=== PATIENT | female | born 1990 ===

== ENCOUNTER 2016-11-14 09:26 | Emergency (ER) | payer OTHER ==
[2016-11-14 10:01] VITALS: BP 132/68
--- NOTE | 2016-12-08 07:25 | UC ---
Sebastián Rhodes Adam, scribed for Ara Shabazz DO on 11/14/16 at 1107 . Skin Complaint HPI - HPI Summary HPI Summary: Pt is a 26 year old female presenting with an abscess near her anus. She noticed it 2 days ago and over the past 2 days it has been growing larger and more painful. She has visualized it in a mirror and states that it appears red and swollen. She has also been feeling fatigued. She denies fever, chills, diaphoresis, sore throat, ear ache, CP, SOB, nausea, and vomiting. She has not had an abscess in this location before but has had one in her armpit. No PMHx. No tobacco use. FMHx of HTN. - History of Current Complaint Chief Complaint: UCGU Time Seen by Provider: 11/14/16 10:59 Stated Complaint: PERSONAL Hx Obtained From: Patient Hx Last Menstrual Period: 2 weeks ago Onset/Duration: Gradual Onset, Lasting Days, Still Present Onset Severity: Mild Current Severity: Moderate Location: Other - Near anus Character: Pain, Redness, Raised Aggravating: Nothing Alleviating: Nothing - Allergy/Home Medications Allergies/Adverse Reactions: Allergies Allergy/AdvReac Type Severity Reaction Status Date / Time No Known Allergies Allergy Verified 01/30/16 11:56 Review of Systems Constitutional: Fatigue Skin: Other - Abscess near anus Eyes: Negative ENT: Negative Respiratory: Negative Cardiovascular: Negative Gastrointestinal: Negative Genitourinary: Negative Motor: Negative Neurovascular: Negative Musculoskeletal: Negative Neurological: Negative Psychological: Negative All Other Systems Reviewed And Are Negative: Yes PMH/Surg Hx/FS Hx/Imm Hx Previously Healthy: Yes Endocrine History Of: Denies: Diabetes, Thyroid Disease, Hyperthyroidism, Hypothyroidism, Dyslipidemia Cardiovascular History Of: Denies: Cardiac Disorders, Hypertension, Pacemaker/ICD, Myocardial Infarction , Congestive Heart Failure, Atrial Fibrillation, Deep Vein Thrombosis, Bleeding Disorders Respiratory History Of: Denies: COPD, Asthma GI/ History Of: Denies: Gastroesophageal Reflux, Ulcer, Gastrointestinal Bleed, Gall Bladder Disease, Kidney Stones, Diverticulitis, Renal Disease, Urosepsis Neurological History Of: Denies: TIA, CVA, Dementia, Seizures, Migraine Psychological History Of: Denies: Anxiety, Depression, Bipolar Disorder, Schizophrenia, Post Traumatic Stress Disorder Cancer History Of: Denies: Lung Cancer, Colorectal Cancer, Breast Cancer, Prostate Cancer, Cervical Cancer Other History Of: Negative For: HIV, Hepatitis B, Hepatitis C, Anticoagulant Therapy - Surgical History Surgical History: Yes Surgery Procedure, Year, and Place: , HERNIA REPAIR - Family History Known Family History: Positive: Hypertension - Social History Occupation: Employed Part-time Lives: Alone Alcohol Use: Weekly Alcohol Amount: weekends Substance Use Type: None Smoking Status (MU): Never Smoked Tobacco Physical Exam Triage Information Reviewed: Yes Appearance: Well-Appearing, No Pain Distress, Well-Nourished Vital Signs: Initial Vital Signs Temp 98.2 F 11/14/16 09:55 Pulse 94 11/14/16 09:55 BP 132/68 11/14/16 09:55 Pulse Ox 97 11/14/16 09:55 Eyes: Positive: Conjunctiva Clear. Negative: Discharge ENT: Positive: Hearing grossly normal. Negative: Muffled/hoarse voice Neck: Positive: Supple, Nontender Respiratory: Positive: Lungs clear, Normal breath sounds, No respiratory distress, No accessory muscle use Cardiovascular: Positive: RRR, No Murmur Abdomen Description: Positive: Nontender, Soft. Negative: Distended, Guarding Bowel Sounds: Positive: Present Musculoskeletal Exam: Normal Neurological: Positive: Alert, Muscle Tone Normal Psychological Exam: Normal Psychological: Positive: Age Appropriate Behavior Skin: Positive: Other - There is a quarter-sized raised area at 2:00 to the anus that is tender to the touch and fluctuant. It is mildly erythematous. Rectal exam revealed tenderness inside the rectum in the same direction as the abscess. Course/Dx - Differential Diagnoses - Skin Complaint Differential Diagnoses: Abscess, Cellulitis, MRSA - Diagnoses Provider Diagnoses: perirectal abscess Discharge - Discharge Plan Condition: Stable Disposition: AGAINST MEDICAL ADVICE Referrals: Francisco Javier Johnson [Primary Care Provider] - The documentation as recorded by the Sebastián kaye Adam accurately reflects the service I personally performed and the decisions made by me, Ara Shabazz DO.
== END 2016-11-14 11:20 | disposition left against medical advice (07) ==
LOC: UCEAST 09:26
DX: K62.89 Other specified diseases of anus and rectum (principal); Z53.20 Procedure and treatment not carried out because of patient's decision for unspecified reasons
CPT/HCPCS: 99212; G0463

== ENCOUNTER 2016-11-14 11:37 | Emergency (ER) | payer OTHER ==
[2016-11-14] MEDS ORDERED: Amoxicillin PO (*) 875 MG TAB PO ONE (12:48)
--- NOTE | 2016-11-14 13:40 | ED ---
Skin Complaint - HPI Summary HPI Summary: Patient presents with two days of having a bump and pain on the edge of her anus. She shaves closely there and wonders if this is a result of shaving about 4 days ago. She has not noticed any redness, or drainage but it is sore. She denies pain with defecation or noticing any blood in her stool or when she whips. No fever, chill, N/V/D. She does not practice anal sex and does not have any new partners. - History of Current Complaint Chief Complaint: EDGeneral Time Seen by Provider: 11/14/16 12:02 Stated Complaint: ABSCESS Hx Obtained From: Patient Hx Last Menstrual Period: 2 weeks ago Onset/Duration: Started Days Ago - 2 Skin Exposure Onset/Duration: Days Ago - 2 Timing: Constant Onset Severity: Mild Current Severity: Moderate Pain Intensity: 7 Skin Location: Other: - anus Character: Swelling, Pain Aggravating Symptom(s): Touch Alleviating Symptom(s): Nothing Associated Signs & Symptoms: Tenderness - Allergy/Home Medications Allergies/Adverse Reactions: Allergies Allergy/AdvReac Type Severity Reaction Status Date / Time No Known Allergies Allergy Verified 01/30/16 11:56 PMH/Surg Hx/FS Hx/Imm Hx Previously Healthy: Yes Endocrine/Hematology History: Denies: Hx Anticoagulant Therapy, Hx Diabetes, Hx Thyroid Disease Cardiovascular History: Denies: Hx Congestive Heart Failure, Hx Deep Vein Thrombosis, Hx Hypertension , Hx Myocardial Infarction, Hx Pacemaker/ICD Respiratory History: Denies: Hx Asthma, Hx Chronic Obstructive Pulmonary Disease (COPD), Hx Lung Cancer GI History: Denies: Hx Gall Bladder Disease, Hx Gastrointestinal Bleed, Hx Ulcer, Hx Urosepsis History: Denies: Hx Kidney Stones, Hx Renal Disease Neurological History: Denies: Hx Dementia, Hx Migraine, Hx Seizures, Hx Transient Ischemic Attacks (TIA) Psychiatric History: Denies: Hx Anxiety, Hx Depression, Hx Schizophrenia, Hx Bipolar Disorder - Surgical History Surgery Procedure, Year, and Place: , HERNIA REPAIR Infectious Disease History: No Infectious Disease History: Denies: Hx Hepatitis, Hx Human Immunodeficiency Virus (HIV), History Other Infectious Disease, Traveled Outside the [place] in Last 30 Days - Family History Known Family History: Positive: None - Social History Occupation: Employed Full-time Lives: With Family Alcohol Use: Weekly Alcohol Amount: weekends Substance Use Type: Reports: None Smoking Status (MU): Never Smoked Tobacco Review of Systems Negative: Fever, Chills Positive: Other - pea size mass on 5 o'clock position of the anus All Other Systems Reviewed And Are Negative: Yes Physical Exam Triage Information Reviewed: Yes Vital Signs On Initial Exam: Initial Vitals Temp Pulse Resp BP Pulse Ox 97.9 F 87 12 136/65 100 11/14/16 11:40 11/14/16 11:40 11/14/16 11:40 11/14/16 11:40 11/14/16 11:40 Vital Signs Reviewed: Yes Appearance: Positive: Well-Appearing, Well-Nourished, Pain Distress Skin: Positive: Warm, Skin Color Reflects Adequate Perfusion, Dry, Tender - pea size mass on 5 o'clock position of the anus without erythema or drainage, Soft Head/Face: Positive: Normal Head/Face Inspection Eyes: Positive: EOMI, ARLIN, Conjunctiva Clear ENT: Positive: Hearing grossly normal Neck: Positive: Supple, Nontender, No Lymphadenopathy Respiratory/Lung Sounds: Positive: Breath Sounds Present Cardiovascular: Positive: RRR Abdomen Description: Positive: Nontender, Soft Pelvic Exam: Positive: external exam normal Musculoskeletal: Negative: Edema Left, Edema Right Neurological: Positive: Sensory/Motor Intact, Alert, Oriented to Person Place, Time, NV Bundle Intact Distally Psychiatric: Positive: Affect/Mood Appropriate AVPU Assessment: Alert Diagnostics - Vital Signs Vital Signs Temp Pulse Resp BP Pulse Ox 11/14/16 11:40 97.9 F 87 12 136/65 100 - Laboratory Lab Statement: Any lab studies that have been ordered have been reviewed, and results considered in the medical decision making process. Course/Dx - Differential Diagnoses - Skin Complaint Differential Diagnoses: Abscess, Cellulitis, Contact Dermatitis, Foreign Body, Local Allergic Reaction, MRSA, Urticaria - Diagnoses Provider Diagnoses: Anal cellulitis Discharge - Discharge Plan Condition: Stable Disposition: HOME Prescriptions: Amoxicillin (*) 875 mg PO BID #19 tab traMADol TAB* [Ultram*] 50 mg PO Q12H PRN #8 tab MDD 2 PRN Reason: Pain Patient Education Materials: Rectal Abscess (ED) Referrals: Francisco Javier Johnson [Primary Care Provider] - Additional Instructions: Please take the antibiotics as prescribed until they are completely gone. Use 600mg of ibuprofen three times daily with meals for the next 3-5 days to decrease swelling and pain. Use the pain pill as needed. Follow-up with your primary care provider in 2-3 days for evaluation to insure you are improving. Return to the emergency department if your symptoms worsen.
[2016-11-14 13:45] VITALS: BP 127/69
== END 2016-11-14 13:35 | disposition home or self-care (01) ==
LOC: ED 11:37
DX: K61.0 Anal abscess (principal)
CPT/HCPCS: 99282

== ENCOUNTER 2017-11-26 11:06 | Emergency (ER) | payer SELFPAY ==
[2017-11-26 11:33] VITALS: BP 128/79
[2017-11-26] MEDS ORDERED: Acetaminophen TAB* 325 MG PO ONE (12:06)
--- NOTE | 2017-11-26 12:13 | UC ---
Jolie Rhodes Julia, scribed for Courtney Moses MD on 11/26/17 at 1203 . Complaint Female HPI - HPI Summary HPI Summary: This patient is a 27 year old F presenting to [facility] with a chief complaint of growing painful vaginal cyst since 11/23/17. Patient denies fever, urinary symptoms, vaginal discharge, and bowel symptoms. The patient rates the pain 8/10 in severity. Symptoms alleviated by warm compresses. Patient has been taking Ibuprofen for pain with little relief. Patient has had previous relief with antibiotics for prior vaginal cysts [facility] No h.o I+D no concern for STD Pt's medications reviewed this visit. - History Of Current Complaint Chief Complaint: UCGeneralIllness Stated Complaint: PAINFUL CYST Time Seen by Provider: 11/26/17 11:51 Hx Obtained From: Patient Hx Last Menstrual Period: pt states on implanon Onset/Duration: Gradual Onset, Lasting Days Timing: Constant Pain Intensity: 8 Pain Scale Used: 0-10 Numeric Alleviating Factor(s): Other - warm compress Associated Signs And Symptoms: Positive: Negative Related Hx: Similar Episode/Dx as: - vaginal cysts - Allergies/Home Medications Allergies/Adverse Reactions: Allergies Allergy/AdvReac Type Severity Reaction Status Date / Time No Known Allergies Allergy Verified 11/26/17 11:25 Home Medications: Home Medications Ibuprofen TAB* [Motrin TAB* 400 MG] 500 mg PO Q6H PRN 11/26/17 [History Confirmed 11/26/17] PMH/Surg Hx/FS Hx/Imm Hx Previously Healthy: Yes - Patient denies medical history besides vaginal cysts. Other History Of: Negative For: HIV, Hepatitis B, Hepatitis C, Anticoagulant Therapy - Surgical History Surgical History: Yes Surgery Procedure, Year, and Place: , HERNIA REPAIR - Family History Known Family History: Positive: Hypertension - Social History Occupation: Employed Full-time Lives: With Family Alcohol Use: None Alcohol Amount: weekends Substance Use Type: None Smoking Status (MU): Never Smoked Tobacco Review of Systems Constitutional: Negative - fever Gastrointestinal: Negative Genitourinary: Negative - urinary symptoms and vaginal discharge, Other - vaginal cyst All Other Systems Reviewed And Are Negative: Yes Physical Exam Triage Information Reviewed: Yes Appearance: Well-Appearing, Well-Nourished, Other: - mild discomfort Vital Signs: Initial Vital Signs Temp 98.6 F 11/26/17 11:26 Pulse 92 11/26/17 11:26 Resp 18 11/26/17 11:26 BP 128/79 11/26/17 11:26 Pulse Ox 99 11/26/17 11:26 Vital Signs Reviewed: Yes Eye Exam: Normal Eyes: Positive: Conjunctiva Clear ENT Exam: Normal ENT: Positive: Normal ENT inspection, Hearing grossly normal, Pharynx normal, TMs normal Dental Exam: Normal Neck exam: Normal Neck: Positive: Supple, Nontender, No Lymphadenopathy Respiratory Exam: Normal Respiratory: Positive: Chest non-tender, Lungs clear, Normal breath sounds Cardiovascular Exam: Normal Cardiovascular: Positive: RRR, No Murmur Abdominal Exam: Normal Abdomen Description: Positive: Nontender, No Organomegaly, Soft, Other: - left inferior, exterior margin of labia majoria pt with dime-sized firm cyst mild TTP no warmth, fluctuance, drainage no cellulitis Bowel Sounds: Positive: Present Musculoskeletal Exam: Normal Complaint Female Dx - Course Course Of Treatment: Pt with likely early barothian gland cyst TTP. sitz bath. Bactrim. motrin/apap. [facility] - Differential Dx/Diagnosis Provider Diagnoses: vaginal cyst Discharge - Discharge Plan Condition: Stable Disposition: HOME Prescriptions: Sulfamethox/Trimethoprim DS* [Bactrim DS 800/160 TAB*] 1 tab PO BID #14 tab Patient Education Materials: Bartholin Cyst (ED) Referrals: [facility] [Outside] Francisco Javier Johnson [Primary Care Provider] - Additional Instructions: - Apply warm soaks or warm sitz baths 2-3 times a day - Okay to alternate ibuprofen (Advil, Motrin)600mg and tylenol 1000mg every 3 hours for pain. Take with food. Do NOT for more than 4-5 days - Take antibiotics as prescribed until gone - [facility] your [facility]. Have your cyst rechecked. You may requiring draining if it is progressing or there is concern for pus collection - return here, [facility] or [facility] with questions or concerns The documentation as recorded by the Jolie kaye Julia accurately reflects the service I personally performed and the decisions made by , Courtney Moses MD.
== END 2017-11-26 12:23 | disposition home or self-care (01) ==
LOC: UCEAST 11:06
DX: N89.8 Other specified noninflammatory disorders of vagina (principal)
CPT/HCPCS: 99212; A9270-GY; G0463

== ENCOUNTER 2018-06-11 10:27 | Emergency (ER) | payer OTHER ==
--- NOTE | 2018-06-11 10:30 | UC ---
Complaint Female HPI - HPI Summary HPI Summary: 27 yo female presents with vaginal discharge for 1 week. She tells me that her symptoms started 1 week ago with mild itching. Over the last 3-4 days noticed white and yellow vaginal discharge. Is having pain with intercourse. LMP was 2 weeks ago and regular. She denies new sexual partners or concern for STDs today. Denies fever, chills, abdominal bleeding, pelvic pain, abdominal pain, n/ v, dysuria. - History Of Current Complaint Stated Complaint: PERSONAL Time Seen by Provider: 06/11/18 10:29 Hx Obtained From: Patient Hx Last Menstrual Period: pt states on implanon Onset/Duration: Gradual Onset Severity Currently: None - Allergies/Home Medications Allergies/Adverse Reactions: Allergies Allergy/AdvReac Type Severity Reaction Status Date / Time No Known Allergies Allergy Verified 06/11/18 10:37 Home Medications: Home Medications Mesalamine [Apriso] 1 tab PO DAILY 06/11/18 [History Confirmed 06/11/18] PMH/Surg Hx/FS Hx/Imm Hx - Additional Past Medical History Additional PMH: None Other History Of: Negative For: HIV, Hepatitis B, Hepatitis C, Anticoagulant Therapy - Surgical History Surgical History: Yes Surgery Procedure, Year, and Place: , HERNIA REPAIR - Family History Known Family History: Positive: Hypertension - Social History Occupation: Employed Full-time Lives: With Family Alcohol Use: None Alcohol Amount: weekends Substance Use Type: None Smoking Status (MU): Never Smoked Tobacco Review of Systems Constitutional: Negative Skin: Negative Respiratory: Negative Cardiovascular: Negative Gastrointestinal: Negative Genitourinary: Vaginal/Penile Discharge Neurovascular: Negative Neurological: Negative Psychological: Negative All Other Systems Reviewed And Are Negative: Yes Physical Exam - Summary Physical Exam Summary: GENERAL: NAD. WDWN. No pain distress. SKIN: No rashes, sores, lesions, or open wounds. NECK: Supple. Nontender. No lymphadenopathy. CHEST: CTAB. No r/r/w. No accessory muscle use. Breathing comfortably and in no distress. CV: RRR. Without m/r/g. Pulses intact. Cap refill <2seconds ABDOMEN: Soft. NTTP. No distention or guarding. No CVA tenderness. Bowel sounds present NEURO: Alert. PSYCH: Age appropriate behavior. Triage Information Reviewed: Yes Vital Signs: Vital Signs: Temp Pulse Resp BP Pulse Ox 97.3 F 90 16 135/87 100 06/11/18 10:33 06/11/18 10:33 06/11/18 10:33 06/11/18 10:33 06/11/18 10:33 Vital Signs Reviewed: Yes Pelvic Exam: Positive: External Exam Normal, No Cerv. Motion Tender, No Masses, Discharge - Thick white mixed with thin yellow/white with mild odor., Other - Erika HOLLAND assisted with exam. Negative: Active Bleeding, Blood, Lesions, Ulcers Complaint Female Dx - Course Course Of Treatment: Suspect BV and/or yeast. Will send for affirm and treat for both today. She declined further STD testing at this time. - Differential Dx/Diagnosis Provider Diagnoses: Bacterial vaginosis. Vaginal yeast Discharge - Sign-Out/Discharge Documenting (check all that apply): Patient Departure All imaging exams completed and their final reports reviewed: No Studies - Discharge Plan Condition: Stable Disposition: HOME Prescriptions: Fluconazole [Diflucan 150 MG (NF)] 150 mg PO ONCE #2 tab metroNIDAZOLE [Flagyl] 500 mg PO BID #14 tablet Patient Education Materials: Bacterial Vaginosis (ED), Yeast Infection (ED) Referrals: Francisco Javier Johnson [Primary Care Provider] - Additional Instructions: If you develop a fever, shortness of breath, chest pain, new or worsening symptoms - please call your PCP or go to the ED. - Billing Disposition and Condition Condition: STABLE Disposition: Home
[2018-06-11 10:36] VITALS: BP 135/87
--- NOTE | 2018-06-12 17:44 | UC ---
- Progress Note Progress Note: Vaginal culture positive for BV (gardnerella) and TRICHOMONAS --- pt was treated at visit with Flagyl 500mg BID for suspected BV which is also treatment for Trich. Please call and inform pt of results. Trich is not a reportable infection. Discharge - Sign-Out/Discharge Documenting (check all that apply): Post-Discharge Follow Up All imaging exams completed and their final reports reviewed: No Studies - Discharge Plan Condition: Stable Disposition: HOME Prescriptions: Fluconazole [Diflucan 150 MG (NF)] 150 mg PO ONCE #2 tab metroNIDAZOLE [Flagyl] 500 mg PO BID #14 tablet Patient Education Materials: Bacterial Vaginosis (ED), Yeast Infection (ED) Referrals: Francisco Javier Johnson [Primary Care Provider] - Additional Instructions: If you develop a fever, shortness of breath, chest pain, new or worsening symptoms - please call your PCP or go to the ED. - Billing Disposition and Condition Condition: STABLE Disposition: Home
== END 2018-06-11 11:15 | disposition home or self-care (01) ==
LOC: UCEAST 10:27
DX: N76.0 Acute vaginitis (principal); B96.89 Other specified bacterial agents as the cause of diseases classified elsewhere; A59.01 Trichomonal vulvovaginitis
CPT/HCPCS: 87480; 87510; 87660; 99212; G0463

== ENCOUNTER 2018-09-05 10:34 | Emergency (ER) | payer OTHER ==
[2018-09-05 10:40] VITALS: BP 143/98
--- NOTE | 2018-09-05 10:42 | UC ---
Skin Complaint HPI - HPI Summary HPI Summary: 28 y/o female presents to the urgent care c/o painful cyst on on her left side of her groin s/p shaving for the past 2 days. Pt reports this is the 3rd time it happens and usually resolves w/ antibiotics. Pain is now 9/10 when she touches or sitting. Pt denies any drainage, fever, Hx of MRSA, vaginal discharge , Hx of STD's, SOB, chest pain, abdominal pain, N/V/D. She has not taking anything for pain or applied warm compresses. - History of Current Complaint Chief Complaint: UCGU Time Seen by Provider: 09/05/18 10:41 Stated Complaint: PERSONAL Hx Obtained From: Patient Hx Last Menstrual Period: implanon ?: No Onset/Duration: Gradual Onset, Lasting Days - 2 days, Still Present, Worse Since - today Skin Exposure Onset/Duration: Days Ago - 2 days Timing: Constant Current Severity: Moderate Pain Intensity: 9 - at touch Pain Scale Used: 0-10 Numeric Location: Discrete - groing area w/ a painful cyst Character: Swelling, Raised, Painful Aggravating Factor(s): Touch Alleviating Factor(s): Nothing Associated Signs & Symptoms: Positive: Rash - painful cyst in her RT side of buttucks close to the vagina. Negative: Fever, Chills Related History: Other: - shaving - Allergy/Home Medications Allergies/Adverse Reactions: Allergies Allergy/AdvReac Type Severity Reaction Status Date / Time No Known Allergies Allergy Verified 09/05/18 10:40 PMH/Surg Hx/FS Hx/Imm Hx Previously Healthy: Yes Other GI/ History: umbilical hernia Other History Of: Negative For: HIV, Hepatitis B, Hepatitis C, Anticoagulant Therapy - Surgical History Surgical History: Yes Surgery Procedure, Year, and Place: , HERNIA REPAIR - Family History Known Family History: Positive: Cardiac Disease, Hypertension - Social History Occupation: Employed Full-time Lives: With Family Alcohol Use: None Alcohol Amount: weekends Substance Use Type: None Smoking Status (MU): Never Smoked Tobacco Review of Systems All Other Systems Reviewed And Are Negative: Yes Constitutional: Positive: Negative Skin: Positive: Rash - a painful cyst on her groin area Eyes: Positive: Negative ENT: Positive: Negative Respiratory: Positive: Negative Cardiovascular: Positive: Negative Gastrointestinal: Positive: Negative Genitourinary: Positive: Negative Motor: Positive: Negative Neurovascular: Positive: Negative Musculoskeletal: Positive: Negative Neurological: Positive: Negative Psychological: Positive: Negative Is Patient Immunocompromised?: No Physical Exam - Summary Physical Exam Summary: Vital Signs Reviewed: Yes General: well developed, well nourished female sitting in the examining table w/ o any apparent distress Eye Exam: Normal Eyes: Positive: Conjunctiva Clear - PERRLA, EOMI, fundi grossly normal ENT: Positive: Normal ENT inspection, Hearing grossly normal, Pharynx normal, TMs normal Neck: Positive: Supple, Nontender, No Lymphadenopathy Respiratory: Positive: Chest non-tender, Lungs clear, Normal breath sounds, No respiratory distress Cardiovascular: Positive: RRR, No Murmur, Pulses Normal, Brisk Capillary Refill Abdomen Description: Positive: Nontender, No Organomegaly, Soft. Negative: CVA Tenderness (R), CVA Tenderness (L) Bowel Sounds: Positive: Present Musculoskeletal: Positive: Strength Intact, ROM Intact, No Edema Neurological: Positive: Alert, Muscle Tone Normal Psychological Exam: Normal Skin: Positive: left gluteus near the entrance of vagina with a small erythematous pustule that is indurated and fluctuant, tender to palpation, swollen, and warm to touch about .4cm in size. Triage Information Reviewed: Yes Vital Signs: Initial Vital Signs Temp 98 F 09/05/18 10:37 Pulse 100 09/05/18 10:37 Resp 20 09/05/18 10:37 BP 143/98 09/05/18 10:37 Pulse Ox 100 09/05/18 10:37 Course/Dx - Course Course Of Treatment: 28 y/o female presents to the urgent care c/o painful cyst on on her left side of her groin s/p shaving for the past 2 days. Pt reports this is the 3rd time it happens and usually resolves w/ antibiotics. Pain is now 9/10 when she touches or sitting. Pt denies any drainage, fever, Hx of MRSA , vaginal discharge, Hx of STD's, SOB, chest pain, abdominal pain, N/V/D. She has not taking anything for pain or applied warm compresses. Pt w/ a small left gluteal abscess on examination. Pt declines I&D since states it ussually resolved w/ the antibitoic. No Hx of MRSA. Pt Rx Bactrim PO and Bacitracin oint and Ibuprofen PO . Also advised to apply warm compresses. Strongly advised if not improvement of symptosm to return to the urgent care or f/u w/ PCP for I&D. Pt's BP is elevated today advised to decrease salt in diet, monitor BP and f/u with PCP for further management. Pt understood and agreed w/ plan of care. - Differential Diagnoses - Skin Complaint Differential Diagnoses: Abscess, Cellulitis, Contact Dermatitis, Local Allergic Reaction, MRSA, Urticaria - Diagnoses Provider Diagnosis: Abscess and cellulitis of gluteal region, Elevated BP without diagnosis of hypertension Discharge - Sign-Out/Discharge Documenting (check all that apply): Patient Departure - d/C home All imaging exams completed and their final reports reviewed: No Studies - Discharge Plan Condition: Stable Disposition: HOME Prescriptions: Bacitracin OINTMENT* 1 applic TOPICAL BID #1 tube Ibuprofen TAB* [Motrin TAB* 800 MG] 800 mg PO Q6H PRN #30 tab PRN Reason: Pain Sulfamethox/Trimethoprim DS* [Bactrim DS 800/160 TAB*] 1 tab PO BID #14 tab Patient Education Materials: Abscess (ED), Low-Sodium Diet (ED) Referrals: Francisco Javier Johnson [Primary Care Provider] - 2 Days Additional Instructions: 1-Please take full course of antibiotic to avoid resistance. Apply warm compresses throughout the day. Apply Bacitracin topical as directed 2- If abscess increases in size or it is more painful, please return to the urgent care or f/u w/ your PCP in 2 days for I&D since you decline procedure. 3-Take Ibuprofen PO q6-8hrs prn for pain or swelling. 4- Your BP is elevated today. please decrease salt in your diet, monitor BP and if it continues to be elevated please f/u with your PCP for further management - Billing Disposition and Condition Condition: STABLE Disposition: Home
== END 2018-09-05 11:10 | disposition home or self-care (01) ==
LOC: UCEAST 10:34
DX: L02.31 Cutaneous abscess of buttock (principal); L03.317 Cellulitis of buttock; R03.0 Elevated blood-pressure reading, without diagnosis of hypertension
CPT/HCPCS: 99212; G0463

== ENCOUNTER 2019-10-23 18:43 | Emergency (ER) | payer OTHER ==
--- NOTE | 2019-10-23 19:05 | ED ---
Neck Pain - HPI Summary HPI Summary: This patient is a 29 year old female presenting to [facility] with a cehif complaint of neck/right shoulder pain since 3 weeks ago. She states the neck pain is more noticeable when she is not moving the shoulder. She denies any trauma that may have caused this. she denies weakness. She states there is some tingling. She states she cannot move her neck all the way back secondary to pain. She states the pain is aggravated when she happens to cough, although she states she is not coughing a lot. Medications reviewed, allergies noted. - History of Current Complaint Chief Complaint: EDExtremityUpper Stated Complaint: RIGHT SHOULDER PAIN PER PT Time Seen by Provider: 10/23/19 18:48 Hx Obtained From: Patient Hx Last Menstrual Period: implanon Onset/Duration: Started weeks ago Pain Intensity: 8 Pain Scale Used: 0-10 Numeric - Allergies/Home Medications Allergies/Adverse Reactions: Allergies Allergy/AdvReac Type Severity Reaction Status Date / Time No Known Allergies Allergy Verified 10/23/19 18:46 PMH/Surg Hx/FS Hx/Imm Hx Endocrine/Hematology History: Denies: Hx Anticoagulant Therapy, Hx Diabetes, Hx Thyroid Disease Cardiovascular History: Denies: Hx Congestive Heart Failure, Hx Deep Vein Thrombosis, Hx Hypertension , Hx Myocardial Infarction, Hx Pacemaker/ICD Respiratory History: Denies: Hx Asthma, Hx Chronic Obstructive Pulmonary Disease (COPD), Hx Lung Cancer GI History: Denies: Hx Gall Bladder Disease, Hx Gastrointestinal Bleed, Hx Ulcer, Hx Urosepsis History: Denies: Hx Kidney Stones, Hx Renal Disease Neurological History: Denies: Hx Dementia, Hx Migraine, Hx Seizures, Hx Transient Ischemic Attacks (TIA) Psychiatric History: Denies: Hx Anxiety, Hx Depression, Hx Schizophrenia, Hx Bipolar Disorder - Surgical History Surgery Procedure, Year, and Place: , HERNIA REPAIR Infectious Disease History: No Infectious Disease History: Denies: Hx Hepatitis, Hx Human Immunodeficiency Virus (HIV), History Other Infectious Disease, Traveled Outside the [place] in Last 30 Days - Family History Known Family History: Positive: Cardiac Disease, Hypertension - Social History Alcohol Use: None Alcohol Amount: weekends Substance Use Type: Reports: None Smoking Status (MU): Never Smoked Tobacco Review of Systems Negative: Fever Positive: Cough Positive: Other - Neck/shoulder pain All Other Systems Reviewed And Are Negative: Yes Physical Exam - Summary Physical Exam Summary: Constitutional: Well-developed, Well-nourished, Alert. (-) Distressed Skin: Warm, Dry HENT: Normocephalic; Atraumatic Eyes: Conjunctiva normal Neck: Musculoskeletal ROM limited on extension of the neck. (-) JVD, (-) Stridor , (-) Tracheal deviation Cardio: Rhythm regular, rate normal, Heart sounds normal; Intact distal pulses; Radial pulses are 2+ and symmetric. (-) Murmur Pulmonary/Chest wall: Effort normal. (-) Respiratory distress, (-) Wheezes, (-) Rales Abd: Soft, (-) tenderness, (-) Distension, (-) Guarding, (-) Rebound Musculoskeletal: (-) Edema. Tenderness of the right trapezius from the lateral neck to the shoulder. Lymph: (-) Cervical adenopathy Neuro: Alert, Oriented x3 Psych: Mood and affect Normal Triage Information Reviewed: Yes Vital Signs On Initial Exam: Initial Vitals Temp Pulse Resp BP Pulse Ox 98.5 F 106 14 155/96 100 10/23/19 18:44 10/23/19 18:44 10/23/19 18:44 10/23/19 18:44 10/23/19 18:44 Vital Signs Reviewed: Yes Procedures - Sedation Patient Received Moderate/Deep Sedation with Procedure: No Diagnostics - Vital Signs Vital Signs Temp Pulse Resp BP Pulse Ox 10/23/19 18:44 98.5 F 106 14 155/96 100 - Laboratory Lab Statement: Any lab studies that have been ordered have been reviewed, and results considered in the medical decision making process. Neck Course/Dx - Course Course Of Treatment: Patient is here 3 weeks of pain in her right trapezius. Patient's pain is worse with neck movement. Patient has no neurologic symptoms and is overall well-appearing. Patient is likely suffering from a trapezius strain. Patient has not been doing any medicines at home for her symptoms. Patient was encouraged to take Motrin, Tylenol, use heat. Patient was discharged with a small prescription of Flexeril as well. - Diagnoses Provider Diagnoses: Trapezius muscle strain Discharge ED - Sign-Out/Discharge Documenting (check all that apply): Patient Departure - Discharge - Discharge Plan Condition: Stable Disposition: HOME Prescriptions: Cyclobenzaprine TAB* [Flexeril 10 MG TAB*] 10 mg PO TID PRN #12 tab PRN Reason: muscle pain Patient Education Materials: Shoulder Sprain (ED) Referrals: Francisco Javier Johnson [Primary Care Provider] - 3 Days Additional Instructions: Use a heating pad and Motrin 600 mg every 6 hours for pain. Can take Tylenol if needed. Consider accupuncture and massage. Follow up with your primary care doctor to make sure your medications are working. Take the prescribed medicine before bed because it will make you sleepy. Return to the ED if you experience difficulty breathing or any other concerning symptoms. - Billing Disposition and Condition Condition: STABLE Disposition: Home - Attestation Statements Document Initiated by Darci: Yes Documenting Scribe: Sanjay Kaur Provider For Whom Darci is Documenting (Include Credential): Etienne Collins MD Scribe Attestation: Sanjay Rhodes, scribed for Etienne Collins MD on 10/23/19 at 2046. Scribe Documentation Reviewed: Yes Provider Attestation: The documentation as recorded by the Sanjay kaye accurately reflects the service I personally performed and the decisions made by Etienne rincon MD Status of Scribe Document: Viewed
[2019-10-23] MEDS ORDERED: Ibuprofen TAB* 600 MG PO ONE (19:09)
[2019-10-23 19:24] VITALS: BP 114/61
== END 2019-10-23 19:20 | disposition home or self-care (01) ==
LOC: ED 18:43
DX: S46.811A Strain of other muscles, fascia and tendons at shoulder and upper arm level, right arm, initial encounter (principal); X58.XXXA Exposure to other specified factors, initial encounter; Y92.9 Unspecified place or not applicable; R05 Cough
CPT/HCPCS: 99282; A9270-GY

== ENCOUNTER 2019-12-09 06:45 | Emergency (ER) | payer MEDICAID, OTHER ==
--- OUTSIDE RECORDS SUMMARY | 2019-12-09 07:03 | XMS REPORT | Continuity of Care Document ---
:1990 External Reference #:[id number] Author Name NEMESIO Mayo (transmitted by agent of provider Trudy Lawson) [address] [place] [address] Care Team Providers Name Role Phone Yoko Bourne MD - Internal Care Team Information Sales Appointment Coordinator [phone] Medicine Problems Description No Active Problems Social History Type Date Description Comments Sex Unknown Tobacco Use Start: Unknown Never Smoked Cigarettes ETOH Use Denies alcohol use Recreational Drug Use Denies Drug Use Tobacco Use Start: Unknown Patient has never smoked Smoking Status Reviewed: 11/10/19 Patient has never smoked Exercise Type/Frequency Exercises rarely Allergies, Adverse Reactions, Alerts Description No Known Drug Allergies Medications Description No Active Medications Medications Administered in Office Medication SIG Qnty Indications Ordering Provider Date MAIA Meehan N.PJenny 09/14/2013 Injection Immunizations CPT Code Status Date Vaccine Lot # [id number] Given 09/14/2013 Measles Mumps And Rubella MMR [id number] Given 09/14/2013 Flu Vaccine Split Virus Preservative Free For [id number] Indiv 3Yr Older [id number] Given 10/17/2011 Hepatitis B Vaccine Adult Dosage [id number] Given 10/17/2011 Tdap - Tetanus/Diptheria/Acellular Pertussis [id number] Given 10/17/2011 Tdap - Tetanus/Diptheria/Acellular Pertussis [id number] 27589 Given 10/17/2011 Measles Mumps And Rubella MMR [id number] Vital Signs Date Vital Result Comment 11/10/2019 1:01pm Height 64 inches 5'4" Weight 167.25 lb Heart Rate 93 /min BP Systolic 128 mmHg BP Diastolic 90 mmHg Body Temperature 97.1 F O2 % BldC Oximetry 98 % BMI (Body Mass Index) 28.7 kg/m2 12/10/2018 9:09am Heart Rate 78 /min Respiratory Rate 18 /min Body Temperature 97.5 F Results Description No Information Available Procedures Description No Information Available Medical Devices Description No Information Available Encounters Description No Information Available Assessments Date Code Description Provider 11/10/2019 R11.10 Vomiting, unspecified NEMESIO Mayo 11/10/2019 B34.9 Viral infection, unspecified Arturosupriya NEMESIO Patino Plan of Treatment 11/10/2019 - Caity Patino, ALANPR11.10 Vomiting, unspecifiedComments:Your symptoms are likely caused by a viral infection that is self limiting. For this we recommend dietary interventions and to follow a BRAT diet.B - BananasR - RiceA - ApplesauceT - Tea and toast Avoid dairy products (except yogurt), spicy, greasy, and gassy foods.You need to replace electrolytes with Gatorade of something similar Start taking an over the counter probiotic like Align. If your symptoms do not improve, please give the office a call.Follow up:as needed Due for PEB34.9 Viral infection, unspecifiedComments:Please call if you develop fever, chills or your symptoms do not improve by the end of the week Functional Status Description No Information Available Mental Status Description No Information Available Referrals Description No Information Available
--- NOTE | 2019-12-09 07:31 | ED ---
Respiratory - HPI Summary HPI Summary: 29 year old F presenting to [facility] accompanied by her daughter with a chief complaint of a sore throat since today. The patient rates the pain 4/10 in severity. Patient reports a cough. Symptoms aggravated by nothing. Symptoms alleviated by nothing. Patient denies vomiting or diarrhea. The patient also denies any medical problems. She has a history of a section. Medication list reviewed. Allergy list reviewed. Home Medications Medication Instructions Recorded Confirmed Type Bacitracin OINTMENT* 1 applic TOPICAL BID #1 tube 09/05/18 Rx Ibuprofen TAB* [Motrin TAB* 800 MG] 800 mg PO Q6H PRN #30 tab 09/05/18 Rx Sulfamethox/Trimethoprim DS* 1 tab PO BID #14 tab 09/05/18 Rx [Bactrim DS 800/160 TAB*] Cyclobenzaprine TAB* [Flexeril 10 10 mg PO TID PRN #12 tab 10/23/19 Rx MG TAB*] - History of Current Complaint Chief Complaint: EDUpperRespComplaint Stated Complaint: GENERAL ILLNESS PER PT Time Seen by Provider: 12/09/19 07:27 Hx Obtained From: Patient Onset/Duration: Lasting Hours Timing: Constant Current Severity: Moderate Pain Intensity: 4 Aggravating Factor(s): Nothing Alleviating Factor(s): Nothing - Allergy/Home Medications Allergies/Adverse Reactions: Allergies Allergy/AdvReac Type Severity Reaction Status Date / Time No Known Allergies Allergy Verified 12/09/19 06:51 Home Medications: Home Medications NK [No Home Medications Reported] 12/09/19 [History Confirmed 12/09/19] PMH/Surg Hx/FS Hx/Imm Hx Endocrine/Hematology History: Denies: Hx Anticoagulant Therapy, Hx Diabetes, Hx Thyroid Disease Cardiovascular History: Denies: Hx Congestive Heart Failure, Hx Deep Vein Thrombosis, Hx Hypertension , Hx Myocardial Infarction, Hx Pacemaker/ICD Respiratory History: Denies: Hx Asthma, Hx Chronic Obstructive Pulmonary Disease (COPD), Hx Lung Cancer GI History: Denies: Hx Gall Bladder Disease, Hx Gastrointestinal Bleed, Hx Ulcer, Hx Urosepsis History: Denies: Hx Kidney Stones, Hx Renal Disease Neurological History: Denies: Hx Dementia, Hx Migraine, Hx Seizures, Hx Transient Ischemic Attacks (TIA) Psychiatric History: Denies: Hx Anxiety, Hx Depression, Hx Schizophrenia, Hx Bipolar Disorder - Surgical History Surgery Procedure, Year, and Place: , HERNIA REPAIR Infectious Disease History: No Infectious Disease History: Denies: Hx Hepatitis, Hx Human Immunodeficiency Virus (HIV), History Other Infectious Disease, Traveled Outside the [place] in Last 30 Days - Family History Known Family History: Positive: Cardiac Disease, Hypertension - Social History Alcohol Use: Occasionally Alcohol Amount: weekends Substance Use Type: Reports: None Smoking Status (MU): Never Smoked Tobacco Review of Systems Positive: Sore Throat Positive: Cough Negative: Vomiting, Diarrhea All Other Systems Reviewed And Are Negative: Yes Physical Exam - Summary Physical Exam Summary: Constitutional: Well-developed, Well-nourished, Alert. (-) Distressed Skin: Warm, Dry HENT: Normocephalic; Atraumatic Eyes: Conjunctiva normal Neck: Musculoskeletal ROM normal neck. (-) JVD, (-) Stridor, (-) Tracheal deviation; anterior cervical lymphadenopathy. Cardio: Rhythm regular, rate normal, Heart sounds normal; Intact distal pulses; Radial pulses are 2+ and symmetric. (-) Murmur Pulmonary/Chest wall: Effort normal. (-) Respiratory distress, (-) Wheezes, (-) Rales Abd: Soft, (-) tenderness, (-) Distension, (-) Guarding, (-) Rebound Musculoskeletal: (-) Edema Lymph: (-) Cervical adenopathy Neuro: Alert, Oriented x3 Psych: Mood and affect Normal Triage Information Reviewed: Yes Vital Signs On Initial Exam: Initial Vitals Temp Pulse Resp BP Pulse Ox 98.3 F 91 16 143/83 96 12/09/19 06:50 12/09/19 06:50 12/09/19 06:50 12/09/19 06:50 12/09/19 06:50 Vital Signs Reviewed: Yes Procedures - Sedation Patient Received Moderate/Deep Sedation with Procedure: No Diagnostics - Vital Signs Vital Signs Temp Pulse Resp BP Pulse Ox 12/09/19 06:50 98.3 F 91 16 143/83 96 - Laboratory Lab Statement: Any lab studies that have been ordered have been reviewed, and results considered in the medical decision making process. Disposition - Course Course Of Treatment: Patient is here with a sore throat since this morning. Patient's overall well-appearing with no fever. Patient had negative rapid strep. Patient was given Motrin for pain - Diagnoses Provider Diagnoses: Sore throat Discharge ED - Sign-Out/Discharge Documenting (check all that apply): Patient Departure - Discharge Plan Condition: Stable Disposition: HOME Patient Education Materials: Pharyngitis (ED) Referrals: Francisco Javier Johnson [Primary Care Provider] - 3 Days Additional Instructions: Follow-up with your PCP in 1-3 days. Take Motrin and Tylenol for your pain. Return to the emergency department if you cannot swallow, have trouble breathing , or have any other concerning symptoms. - Billing Disposition and Condition Condition: STABLE Disposition: Home - Attestation Statements Document Initiated by Blancheibe: Yes Documenting Scribe: Marion Saunders Provider For Whom Darci is Documenting (Include Credential): Etienne Collins MD Scribe Attestation: Marion Rhodes scribed for Etienne Collins MD on 12/09/19 at 1856. Scribe Documentation Reviewed: Yes Provider Attestation: The documentation as recorded by the Marion kaye accurately reflects the service I personally performed and the decisions made by , Etienne Collins MD Status of Scribe Document: Viewed
[2019-12-09] MEDS ORDERED: Ibuprofen TAB* 600 MG PO ONE (07:38)
[2019-12-09 07:58] LABS: Rapid Strep Molecular Negative (Negative)
[2019-12-09 08:44] VITALS: BP 142/85
== END 2019-12-09 08:46 | disposition home or self-care (01) ==
LOC: ED 06:45
DX: J02.9 Acute pharyngitis, unspecified (principal); R05 Cough
CPT/HCPCS: 87651; 99282; A9270-GY